=== PATIENT | male | born 1990 | race Caucasian/White ===

== ENCOUNTER 2019-05-11 15:05 | Emergency (ER) | payer OTHER ==
[~2019-05-11] VITALS: Ht 182.9 cm; Wt 65.8 kg
[2019-05-11 15:09] VITALS: BP 109/68
[2019-05-11] MEDS: HYDROcodone/APAP 5/325 MG 1 TAB TAB PO ONE (15:57)
[2019-05-11] MEDS: KETOROLAC 60 MG/2 ML VIAL IM ONE (15:58)
[2019-05-11 16:56] VITALS: BP 109/68
== END 2019-05-11 16:55 | disposition home or self-care (01) ==
LOC: MED 15:05
DX: S00.83XA Contusion of other part of head, initial encounter (principal); S20.212A Contusion of left front wall of thorax, initial encounter; S90.512A Abrasion, left ankle, initial encounter; S70.11XA Contusion of right thigh, initial encounter; Z79.899 Other long term (current) drug therapy; Y04.8XXA Assault by other bodily force, initial encounter; Y93.89 Activity, other specified; Y92.89 Other specified places as the place of occurrence of the external cause; Y99.8 Other external cause status
CPT/HCPCS: 71101; 96372; 99283; J1885